=== PATIENT | male | born 1955 | race African-American/Black ===

== ENCOUNTER 2021-08-31 07:44 | Emergency (ER) | payer OTHER ==
[~2021-08-31] VITALS: Ht 185.4 cm; Wt 103.4 kg
[2021-08-31 07:51] VITALS: BP 142/104
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
[2021-08-31] MEDS ORDERED: HYDROcodone/APAP 5/325 MG 1 TAB TAB PO ONE (08:10)
[2021-08-31] MEDS ORDERED: IBUPROFEN 600 MG TAB PO ONE (08:10)
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
[2021-08-31] MEDS ORDERED: IBUP-1842 PO (09:08)
[2021-08-31 09:19] VITALS: BP 142/104
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
== END 2021-08-31 09:19 | disposition home or self-care (01) ==
LOC: MED 07:44
DX: S00.83XA Contusion of other part of head, initial encounter (principal); I10 Essential (primary) hypertension; F17.210 Nicotine dependence, cigarettes, uncomplicated; Y04.8XXA Assault by other bodily force, initial encounter; Y93.89 Activity, other specified; Y92.89 Other specified places as the place of occurrence of the external cause; Y99.8 Other external cause status
CPT/HCPCS: 70110; 99283